=== PATIENT | female | born 1950 | race Caucasian/White ===

== ENCOUNTER 2020-03-06 08:29 | Outpatient (CLI) | payer MEDICARE, SELFPAY ==
--- NOTE | 2020-03-06 11:00 | NEURO_ITS ---
Impression: # Complains of numbness of left lower extremity more than right lower extremity. # Normal nerve conduction study including F-waves. # Needle/EMG exam not requested. # Other etiologies need to be ruled out. Nerve Conduction Studies Anti Sensory Summary Table Stim Site NR Peak (ms) P-T Amp (?V) Site1 Site2 Delta-P (ms) Dist (cm) Robert (m/s) Left Sup Fibular Anti Sensory (Ant Lat Mall) 14 cm 3.6 15.0 14 cm Ant Lat Mall 3.6 16.0 44 Right Sup Fibular Anti Sensory (Ant Lat Mall) 14 cm 3.3 9.6 14 cm Ant Lat Mall 3.3 16.0 48 Left Sural Anti Sensory (Lat Mall) Calf 3.8 10.5 Calf Lat Mall 3.8 16.0 42 Right Sural Anti Sensory (Lat Mall) Calf 3.8 14.8 Calf Lat Mall 3.8 16.0 42 Motor Summary Table Stim Site NR Onset (ms) O-P Amp (mV) Site1 Site2 Delta-0 (ms) Dist (cm) Robert (m/s) Left Peroneal Motor (Vastus Med) Ankle 4.5 1.6 Popit Ankle 7.5 36.0 48 Popit 12.0 1.7 Right Peroneal Motor (Vastus Med) Ankle 4.0 4.8 Popit Ankle 7.3 32.0 44 Popit 11.3 4.3 Left Tibial Motor (Abd Turcios Brev) Ankle 4.2 9.0 Knee Ankle 8.5 37.0 44 Knee 12.7 5.4 Right Tibial Motor (Abd Turcios Brev) Ankle 4.0 2.1 Knee Ankle 7.6 36.0 47 Knee 11.6 3.5 F Wave Studies NR F-Lat (ms) L-R F-Lat (ms) Left Peroneal (Mrkrs) (EDB) 45.58 0.24 Right Peroneal (Mrkrs) (EDB) 45.82 0.24 Left Tibial (Mrkrs) (Abd Hallucis) 44.98 0.84 Right Tibial (Mrkrs) (Abd Hallucis) 44.14 0.84 MTDD
== END 2020-03-06 08:30 | disposition home or self-care (01) ==
PROVIDERS: PCP Internal Medicine; Visit Provider Internal Medicine Cardiovascular Disease
DX: R20.2 Paresthesia of skin (principal)
CPT/HCPCS: 95910

== ENCOUNTER 2023-01-06 08:15 | Emergency (ER) | payer MEDICARE, SELFPAY ==
--- NOTE | ~2023-01-06 | XR_ITS ---
EXAMINATION: XR lumbar spine 2-3V DATE: 01/06/2023 09:19 INDICATION: Low back pain. Right-sided sciatica. TECHNIQUE: 3 views of lumbar spine were obtained. COMPARISON: None. FINDINGS: There is 6 degrees levocurvature of lumbar spine. There is 3 mm retrolisthesis of L2 on L3 and L3 on L4. Vertebral body heights are normal. Intervertebral disc heights are normal. There are en dplate osteophytes at all levels. There is multilevel facet joint osteoarthritis, severe in lower lum bar spine. IMPRESSION: 1. Mild lumbar spondylosis. Reviewed, dictated and finalized at location E. IMPRESSION: 1. Mild lumbar spondylosis.
[2023-01-06 08:22] VITALS: BP 139/80; PULSE 80; RESP 18; TEMP 36.7; O2SAT 100
[2023-01-06 08:26] VITALS: BP 135/63; PULSE 85; RESP 21; O2SAT 100
[2023-01-06 08:31] VITALS: BP 125/66; PULSE 86; RESP 20; O2SAT 100
[2023-01-06 09:00] VITALS: PULSE 77; RESP 19
[2023-01-06 09:01] VITALS: BP 150/70; PULSE 76; RESP 16
[2023-01-06 09:20] VITALS: PULSE 72; RESP 17; O2SAT 100
[2023-01-06] MEDS: KETOROLAC 30 MG/ML VIAL (*BKC) IM (09:35)
--- NOTE | 2023-01-06 10:21 | ED.GENADULT ---
HPI - General Adult General Chief complaint: Back Pain/Injury Stated complaint: low back pain Time Seen by Provider: 01/06/23 08:18 History of Present Illness HPI narrative: Patient is a 72-year-old female who presents ER with low back pain. Right-sided. Radiates down the leg. Worsening over the last couple of days. No numbness or tingling to the groin or legs. No urinary or fecal incontinence/retention. Has been taking Tylenol with mild improvement of discomfort. Denies any trauma or increased activity at home. Related Data Home Medications Medication Instructions Recorded Confirmed atorvastatin 40 mg tablet 40 mg PO DAILY 11/12/20 04/15/21 carvedilol 3.125 mg tablet 3.125 mg PO Q12H 11/12/20 04/15/21 clopidogrel 75 mg tablet 75 mg PO DAILY 11/12/20 04/15/21 gabapentin 600 mg tablet 600 mg PO DAILY 11/12/20 04/15/21 potassium chloride 20 mEq 20 meq PO DAILY 11/12/20 04/15/21 tablet,extended release venlafaxine 150 mg 150 mg PO DAILY 11/12/20 04/15/21 capsule,extended release 24 hr Allergies Allergy/AdvReac Type Severity Reaction Status Date / Time No Known Drug Allergies Allergy Unknown Unknown Unverified 01/06/23 09:36 Review of Systems Constitutional: Constitutional: Denies chills and Denies fever(s) Musculoskeletal: Musculoskeletal: Reports back pain, Denies arthralgias, Denies joint swelling and Denies muscle cramps Integumentary/Breasts: Skin/Breast: Denies erythema, Denies rash and Denies skin ulcer Neurologic: Denies focal weakness and Denies numbness [facility] Past Medical History Medical History (Updated 01/06/23 @ 10:25 by Zenon Chang MD) Depression Dyslipidemia Essential hypertension GERD (gastroesophageal reflux disease) History of [place] (myocardial infarction) Family History Family History Mother Diabetes mellitus, Onset Age: 44 Other Family history of cardiovascular disease Family history of congestive heart failure Family history of obesity Social History Social History (Updated 04/15/21 @ 13:16 by Gemma Gurrola CMA) Smoking status: Never smoker Alcohol intake: never Substance use: never Exam Narrative: GENERAL: Well-appearing, well-nourished, and in no acute distress. HEAD: Normocephalic, atraumatic. CHEST: Clear to auscultation. No respiratory distress. HEART: Regular rate and rhythm. Normal peripheral pulses. Back: No midline tenderness to T/L-spine. There is right SI region tenderness that reproduces patient's discomfort. EXTREMITIES: Normal range of motion. No edema. SKIN: Warm, dry, no rash. NEURO: No lower extremity numbness or weakness. Alert and oriented x3. PSYCH: Normal mood and affect. Course Course Emergency Course: Patient educated on imaging results. Had significant improvement in pain with Toradol. Patient prefers to take Tylenol over NSAIDs at home. Will add on muscle relaxation medication. Recommend follow-up with PCP. Return precautions provided. Vital Signs Vital signs: Vital Signs Temperature 98.1 F 01/06/23 08:22 Pulse Rate 80 01/06/23 08:22 Respiratory Rate 18 01/06/23 08:22 Blood Pressure 139/80 01/06/23 08:22 Pulse Oximetry 100 01/06/23 08:22 Oxygen Delivery Room Air 01/06/23 08:22 Temperature 98.1 F 01/06/23 08:22 Pulse Rate 80 01/06/23 08:22 Respiratory Rate 18 01/06/23 08:22 Blood Pressure 139/80 01/06/23 08:22 Pulse Oximetry 100 01/06/23 08:22 Oxygen Delivery Room Air 01/06/23 08:22 Medical Decision Making Vital Signs Vital Signs: Vital Signs Temperature 98.1 F 01/06/23 08:22 Pulse Rate 80 01/06/23 08:22 Respiratory Rate 18 01/06/23 08:22 Blood Pressure 139/80 01/06/23 08:22 Pulse Oximetry 100 01/06/23 08:22 Oxygen Delivery Room Air 01/06/23 08:22 Temperature 98.1 F 01/06/23 08:22 Pulse Rate 80 01/06/23 08:22 Respiratory Rate 18
== END 2023-01-06 10:46 | disposition home or self-care (01) ==
PROVIDERS: Emergency Provider Emergency Medicine; PCP Internal Medicine
DX: M54.41 Lumbago with sciatica, right side (principal); E78.5 Hyperlipidemia, unspecified; I10 Essential (primary) hypertension; I25.2 Old myocardial infarction; K21.9 Gastro-esophageal reflux disease without esophagitis; F32.A Depression, unspecified; M47.816 Spondylosis without myelopathy or radiculopathy, lumbar region
CPT/HCPCS: 72100; 96372; 99283; J1885

== ENCOUNTER 2023-07-19 10:26 | Emergency (ER) | payer MEDICARE, SELFPAY ==
--- NOTE | ~2023-07-19 | XR_ITS ---
EXAMINATION: XR chest 2V DATE: 07/19/2023 11:40 INDICATION: Cough. TECHNIQUE: Frontal and lateral views of the chest were obtained. COMPARISON: None. FINDINGS: There is mild scarring at the lung apices. There are interstitial opacities in the mid and lower lung zones. No pleural effusion or pneumothorax. The heart size is normal. IMPRESSION: 1. Interstitial opacities in the mid and lower lung zones, consistent with mild pulmonary edema versu s chronic lung disease. Reviewed, dictated and finalized at location A. IMPRESSION: 1. Interstitial opacities in the mid and lower lung zones, consistent with mild pulmonary edema versus chronic lung disease.
[2023-07-19 10:47] VITALS: BP 118/54; PULSE 89; RESP 16; TEMP 36.5; O2SAT 92
[2023-07-19 11:01] VITALS: O2SAT 100
--- NOTE | 2023-07-19 11:03 | ED.URI ---
HPI - URI/Sore Throat General Chief Complaint: Upper Respiratory Infection Stated Complaint: cough Time Seen by Provider: 07/19/23 11:03 Source: patient Mode of arrival: ambulatory Limitations: no limitations History of Present Illness HPI Narrative: Tania is a 73-year-old female patient presenting to the clinic today with complaints of cough and nasal congestion for the past 3-4 days. She denies any known fever, chills, or body aches. States she is bringing up some clear phlegm. MD elicited complaint: sore throat and nasal congestion Related Data Home Medications Medication Instructions Recorded Confirmed atorvastatin 40 mg tablet 40 mg PO DAILY 11/12/20 04/15/21 carvedilol 3.125 mg tablet 3.125 mg PO Q12H 11/12/20 04/15/21 clopidogrel 75 mg tablet 75 mg PO DAILY 11/12/20 04/15/21 gabapentin 600 mg tablet 600 mg PO DAILY 11/12/20 04/15/21 potassium chloride 20 mEq 20 meq PO DAILY 11/12/20 04/15/21 tablet,extended release venlafaxine 150 mg 150 mg PO DAILY 11/12/20 04/15/21 capsule,extended release 24 hr Allergies Allergy/AdvReac Type Severity Reaction Status Date / Time No Known Drug Allergies Allergy Unknown Unknown Verified 07/19/23 10:29 Review of Systems Review of Systems: Pertinent positives per HPI. Patient denies any fever, chills, rash, headache, visual changes, dizziness, cough, shortness of breath, chest pain, palpitations, nausea, vomiting, diarrhea, constipation, abdominal pain, or any urinary issues. ON LICENSE OF [facility] Past Medical History Medical History Depression Dyslipidemia Essential hypertension GERD (gastroesophageal reflux disease) History of [place] (myocardial infarction) Family History Family History Mother Diabetes mellitus, Onset Age: 44 Other Family history of cardiovascular disease Family history of congestive heart failure Family history of obesity Social History Social History Smoking status: Never smoker Alcohol intake: never Substance use: never Comments At the time of my signature, I reviewed and agree with the nursing past medical, surgical, social, and family history. There is no relevant family history pertinent to the patient complaint. Exam Narrative: General: Well-developed, well nourished, in no apparent distress Head: Normocephalic, atraumatic Eyes: Pupils equally round and reactive to light bilaterally, EOM intact, sclera and conjunctive clear, no discharge, lids normal Ears: TMs intact and clear, ear canals clear, no drainage, grossly hearing normal. Nose: Nares patent, clear discharge, no inflammation, no sinus tenderness. Mouth: Oral pharynx without lesions or masses, good dentition, MMM. Neck: Supple, trachea midline, no enlargement of anterior or posterior cervical nodes, no thyroid masses or goiter palpable. Cardio: Regular rate and rhythm, s1 and s2 normal, no murmur appreciated. Resp: Rhonchi in the right mid/lower base, no rales, wheezing or rubs Course Course Emergency Course: Portions of this record may have been created with voice recognition software. Vital Signs Vital signs: Vital Signs Temperature 36.5 C 07/19/23 10:47 Pulse Rate 89 07/19/23 10:47 Respiratory Rate 16 07/19/23 10:47 Blood Pressure 118/54 L 07/19/23 10:47 Pulse Oximetry 92 07/19/23 10:47 Oxygen Delivery Room Air 07/19/23 10:47 Temperature 36.5 C 07/19/23 10:47 Pulse Rate 89 07/19/23 10:47 Respiratory Rate 16 07/19/23 10:47 Blood Pressure 118/54 L 07/19/23 10:47 Pulse Oximetry 100 07/19/23 11:01 Oxygen Delivery Room Air 07/19/23 11:01 Vital signs reviewed MDM - URI/Sore Throat MDM Narrative Medical decision making narrative: At the time of visit patient is resting comfortably on the exam table. Patient appears to be nont
[2023-07-19 11:34] LABS: Influenza A QL RT-PCR Negative (Negative); Influenza B QL RT-PCR Negative (Negative); RSV RNA, RT-PCR Negative (Negative); SARS-CoV-2 RNA PCR Negative (Negative)
== END 2023-07-19 12:20 | disposition home or self-care (01) ==
PROVIDERS: Emergency Medicine; Emergency Provider Nurse Practitioner Family; PCP Internal Medicine
DX: J06.9 Acute upper respiratory infection, unspecified (principal); J40 Bronchitis, not specified as acute or chronic; Z20.822 Contact with and (suspected) exposure to COVID-19; F32.A Depression, unspecified; I10 Essential (primary) hypertension; K21.9 Gastro-esophageal reflux disease without esophagitis; I25.2 Old myocardial infarction
CPT/HCPCS: 71046; 87637; 99283

== ENCOUNTER 2023-07-22 06:44 | Inpatient (IN) | payer MEDICARE, SELFPAY ==
[2023-07-22] VITALS (31 sets, daily range): BP systolic 48–112; BP diastolic 28–83; PULSE 69–90; RESP 18–30; TEMP 36.6–37.2; O2SAT 89–100; BMI 21.2
--- NOTE | 2023-07-22 | ECHO_ITS ---
Patient Info Name: Tania Gibbs Age: 73 years : 1950 Gender: Female Ht: 62 in Wt: 119 lbs BSA: 1.54 m2 HR: 78 bpm Heart Rhythm: Sinus Rhythm Technical Quality: Good Exam Date: 07/22/2023 3:05 PM Exam Location: Echo Lab Patient Status: Inpatient Admit Date: 07/22/2023 Staff Ordering Physician: Remberto Suarez MD Java Tech: Dennys Mon RDCS Attending Provider: Duane Mckeon MD Exam Type: CA echo doppler color flow Study Info Indications - cavitary pneumonia Complete two-dimensional, color flow and Doppler transthoracic echocardiogram is performed. Summary 1. Complete two-dimensional, color flow and Doppler transthoracic echocardiogram is performed. 2. Mild left ventricular enlargement with global systolic dysfunction visually estimated ejection fraction about 40%. 3. Mild MR. 4. Modest left atrial enlargement. Left Ventricle Left ventricular chamber dimension is mildly enlarged. Left ventricular systolic function is mildly reduced, estimated at 40-45%. The left ventricular diastolic function is grade I diastolic dysfunction. Right Ventricle Right ventricular chamber dimension is normal. Left Atria Left atrial chamber dimension is mildly enlarged. Right Atria Right atrial chamber dimension is normal. Aortic Valve The aortic valve is normal. Pulmonic Valve The pulmonic valve is not well visualized. Mitral Valve The mitral valve has normal leaflets. There is mild mitral valve regurgitation. Tricuspid Valve The tricuspid valve leaflets are normal. Pericardium/Pleural The pericardium appears normal. Aorta The aortic root size at the sinus of Valsalva is normal. Left Ventricular Outflow Tract Name Value Normal LVOT 2D LVOT Diameter 2.2 cm LVOT Doppler LVOT Peak Gradient 3 mmHg LVOT Mean Gradient 2 mmHg LVOT VTI 24 cm LVOT VTI/AV VTI Ratio 1.0 LVOT Stroke Volume 87 ml LVOT CO 6.7 l/min LVOT CI 4.3 l/min/m2 Pulmonic Valve Name Value Normal RVOT Doppler RVOT Peak Gradient 2 mmHg PV Doppler PV Peak Gradient 2 mmHg Mitral Valve Name Value Normal MV Doppler MV Decel [place] 630 cm/s2 MV PHT 37 ms MV Area (PHT) 5.9 cm2 4.0-5.0 MV Regurgitation Doppler MR Peak Gradient
--- NOTE | ~2023-07-22 | CT_ITS ---
Clinical Indication: Shortness of breath CT Scan of the Chest with Contrast: Technique: Contiguous sections were acquired throughout the chest after intravenous administration of 100 cc of Omnipaque 350. Dose reduction technique was used on this scan by utilizing automated expos ure control and iterative reconstruction technique. The dose-length product (DLP) was 136.66 mGy-cm. Findings: Single mildly enlarged right hilar lymph node present. No other mediastinal or hilar lymphadenopathy. No axillary lymphadenopathy. There is no filling defect in the pulmonary arterial tree to suggest pu lmonary embolus. There is no evidence of aortic dissection or aneurysm. There is no evidence of pleural or pericardial effusion. There is patchy peripheral consolidation, predominantly the lung bases, with several focal areas of c avitary consolidation (left lower lobe image 93, right lower lobe image 83). There are several periph eral areas of consolidation at the anterior right upper lobe. There are areas of peripheral interstit ial thickening and/or tree-in-bud opacity. There is mild to moderate emphysema. Images through the upper abdomen reveal no abnormalities. Impression: No evidence of pulmonary embolus, aortic dissection, or aortic aneurysm. Patchy, probably peripheral and basilar consolidation with several focal areas of cavitation. Finding s are compatible with pneumonia or possibly septic emboli. Mild to moderate emphysema. Possible underlying chronic interstitial disease. Reviewed, dictated and finalized at location . Impression: No evidence of pulmonary embolus, aortic dissection, or aortic aneurysm. Patchy, probably peripheral and basilar consolidation with several focal areas of cavitation. Findings are compatible with pneumonia or possibly septic emboli . Mild to moderate emphysema. Possible underlying chronic interstitial disease.
--- NOTE | ~2023-07-22 | XR_ITS ---
EXAMINATION: XR chest 2V DATE: 07/26/2023 10:17 INDICATION: Septic emboli. Pneumonia. TECHNIQUE: PA and lateral views of the chest were obtained. COMPARISON: Chest radiograph and CT dated 07/22/2023 FINDINGS: Coarse interstitial and mild airspace opacities in the right lung most prominent in the upper lobe an d at the right lung base as well as at the left lung base consistent with multifocal pneumonia superi mposed over emphysema. Small bilateral pleural effusions. No pneumothorax. Heart size is normal. IMPRESSION: 1. Persistent airspace and coarse interstitial opacities throughout the right lung and at the left lo wer lung zone consistent with multifocal pneumonia superimposed over mild emphysema. 2. Small bilateral pleural effusions. Reviewed, dictated and finalized at location A. IMPRESSION: 1. Persistent airspace and coarse interstitial opacities throughout the right l maggie and at the left lower lung zone consistent with multifocal pneumonia superi mposed over mild emphysema. 2. Small bilateral pleural effusions.
--- NOTE | ~2023-07-22 | XR_ITS ---
EXAMINATION: XR chest port-a-cath/central DATE: 07/22/2023 09:30 INDICATION: Central line placement TECHNIQUE: frontal view of the chest was obtained. COMPARISON: Chest radiograph and CT dated 07/22/2023 at 8:02 AM FINDINGS: New dual-lumen right internal jugular central venous catheter with distal tip at the caudal superior vena cava. Left subclavian artery stent. There is a diffuse increased interstitial pattern throughout both lungs with mild more patchy airspac e opacities in the mid and lower lungs. No pleural effusion or pneumothorax. Heart size is normal. IMPRESSION: 1. Right internal jugular central venous catheter with tip in the caudal superior vena cava. No pneum othorax or pleural effusion. 2. Persistent diffuse interstitial and mild patchy airspace opacities, which differential would inclu de pneumonia, pulmonary edema, atelectasis/chronic interstitial lung disease or some combination ther eof. Reviewed, dictated and finalized at location B. IMPRESSION: 1. Right internal jugular central venous catheter with tip in the caudal superi or vena cava. No pneumothorax or pleural effusion. 2. Persistent diffuse interstitial and mild patchy airspace opacities, which di fferential would include pneumonia, pulmonary edema, atelectasis/chronic inters titial lung disease or some combination thereof.
--- NOTE | ~2023-07-22 | XR_ITS ---
Clinical Indication: Shortness of breath PA and lateral views of the chest: Comparison: 07/19/2023 Findings: There is new patchy bibasilar airspace consolidation. Cardiomediastinal silhouette is with in normal limits. Bones and soft tissues are unremarkable. Impression: Patchy bibasilar airspace consolidation. Correlate for pulmonary edema versus infection. Reviewed, dictated and finalized at location . Impression: Patchy bibasilar airspace consolidation. Correlate for pulmonary edema versus i nfection.
--- NOTE | 2023-07-22 07:00 | ECG_ITS ---
Measurements Intervals [place] Rate: 69 P: 73 RI: 150 QRS: 5 QRSD: 93 T: -4 QT: 380 Avg RR 862 QTc: 399 QTcB 409 QTcF 399 Interpretive Statements SINUS RHYTHM POSSIBLE RIGHT ATRIAL ENLARGEMENT [0.25mV P WAVE] POSSIBLE LEFT ATRIAL ENLARGEMENT [-0.1mV P WAVE IN V1/V2] NONSPECIFIC ST & T-WAVE ABNORMALITY BORDERLINE ECG SEE SCANNED COPY FOR SIGNATURE MTDD
[2023-07-22] MEDS: SODIUM CHLORIDE 0.9% IV 1,000 ML 999 ML IV CONT ×2 (07:05→08:10)
[2023-07-22 07:25] LABS: Basophils Absolute Auto 0.1 K/mm3 (0.0-0.1); Basophils Percent Auto 0.4 % (0.2-1.2); Eosinophils Percent Auto 0.1 % (0-4.4); Hemoglobin 12.2 g/dL (12.0-15.0); Immature Granulocyte Absolute 0.08 K/mm3 (0.00-0.031); Immature Granulocyte Percent A 0.6 % (0-0.5); Lymphocytes Absolute Auto 0.46 K/mm3 (0.9-3.2); Lymphocytes Percent Auto 3.7 % (18.3-44.2); Mean Corpuscular HGB Conc 32.1 g/dl (32-36); Mean Corpuscular Hemoglobin 29.8 pg (26-34); Mean Corpuscular Volume 92.9 fl (80-100); Mean Platelet Volume 9.4 fl (7.4-10.4); Monocytes Absolute Auto 0.6 K/mm3 (0.1-0.6); Monocytes Percent Auto 4.6 % (2.6-8.5); Neutrophils Absolute Auto 11.3 K/mm3 (1.3-6.7); Neutrophils Percent Auto 90.6 % (45.5-73.1); Platelet Count Result 346 k/mm3 (150-375); Red Blood Count 4.09 M/mm3 (4.2-5.4); Red Cell Distribution Width 13.1 % (11.5-14.5); White Blood Count 12.5 K/mm3 (4.5-10.0)
--- NOTE | 2023-07-22 07:26 | ED.GENADULT ---
HPI - General Adult General Chief complaint: Upper Respiratory Infection Stated complaint: sob Time Seen by Provider: 07/22/23 07:11 Source: patient Mode of arrival: ambulatory Limitations: no limitations History of Present Illness HPI narrative: 73-year-old female presenting for shortness of breath. Has had symptoms for about 5 days. She is an active smoker. Also has been coughing and says she occasionally gets some coughing induced chest pain. Cough is dry. No fevers. Feels generally weak. All other symptoms and complaints are negative as per ROS. Related Data Home Medications Medication Instructions Recorded Confirmed atorvastatin 40 mg tablet 40 mg PO DAILY 11/12/20 07/22/23 carvedilol 3.125 mg tablet 3.125 mg PO Q12H 11/12/20 07/22/23 clopidogrel 75 mg tablet 75 mg PO DAILY 11/12/20 07/22/23 gabapentin 600 mg tablet 300 mg PO Q8H 11/12/20 07/22/23 potassium chloride 20 mEq 20 meq PO DAILY 11/12/20 07/22/23 tablet,extended release venlafaxine 150 mg 150 mg PO DAILY 11/12/20 07/22/23 capsule,extended release 24 hr buspirone 5 mg tablet 5 mg PO Q12H 07/22/23 07/22/23 escitalopram oxalate 10 mg tablet 10 mg PO DAILY 07/22/23 07/22/23 Allergies Allergy/AdvReac Type Severity Reaction Status Date / Time No Known Drug Allergies Allergy Unknown Unknown Verified 07/22/23 06:59 Review of Systems Review of Systems: All systems reviewed & are unremarkable except as noted in HPI and below PMFSH Past Medical History Medical History (Updated 07/22/23 @ 18:41 by Moses Piper MD) Depression Dyslipidemia Essential hypertension GERD (gastroesophageal reflux disease) History of [place] (myocardial infarction) Stenting in 2011 Family History Family History Mother Diabetes mellitus, Onset Age: 44 Other Family history of cardiovascular disease Family history of congestive heart failure Family history of obesity Social History Social History (Updated 07/22/23 @ 11:49 by Remberto Suarez MD) Social History: Smokes half pack per day for last 20 years, denies any alcohol or drug use Smoking packs per day: 0.5 Smoking cigarettes per day: 10.0 Years smoked: 20 Smoking pack-years: 10.00 Smoking status: Current every day smoker Alcohol intake: never Substance use: never Do You Feel Safe in your Home?: Yes Lack of Transportation: No Lack of Food: Never True Current Housing: I Have Housing Concerned About Future Housing: No Difficulty Paying Gas/Electric Bills: No Difficulty Paying for Meds: No Currently Unemployed: No Education: Decline to Answer Difficulty w/ Childcare or Family Care: No Spiritual care concerns: No Exam Narrative: Constitutional: Generally well appearing, no acute distress. Hypotensive. Hypoxic 85% on room air in triage Head: Atraumatic, no deformities. Eyes: Pupils equal, round, and reactive to light. Neck: Supple, no tracheal deviation, no JVD. ENMT: Mucous membranes moist Cardiovascular: S1, S2 auscultated. No murmurs, rubs, or gallops. No S3/S4. Normal Distal pulses, equal and intact. No peripheral edema. Respiratory: Lung sounds equal. No wheezes, rales, or rhonchi. Gastrointestinal: Abdomen was soft and non-tender. Non-distended. No rebound or guarding. Genitourinary: Deferred Musculoskeletal: Normal muscle tone and bulk. No obvious deformities or tenderness over extremities. Skin: No rashes. Neurological: Strength 5/5 in extremities. Cranial nerves I-XII grossly intact. Distal sensation intact. Mental Status: Awake, alert and oriented x3. Follows commands Course Vital Signs Vital signs: Vital Signs Temperature 36.6 C 07/22/23 06:52 Pulse Rate 78 07/22/23 06:52 Respiratory Rate 21 H 07/22/23 06:52 Blood Pressure 83/54 L 07/22/23 06:52 Pulse Oximetry 89 L 07/22/23 06:52 Oxygen Delivery Room Air 07/22/23 06:52 Temperature 37.2 C 07/22/23
[2023-07-22 07:38] LABS: Alanine Aminotransferase 25 U/L (6-35); Albumin Level 3.8 g/dL (3.5-5.1); Alkaline Phosphatase 159 U/L (38-126); Anion Gap 8 mmol/L (4-12); Aspartate Amino Transferase 47 U/L (14-36); Bilirubin,Total 1.1 mg/dL (0.2-1.3); Blood Urea Nitrogen 16 mg/dL (7-17); Calcium 9.5 mg/dL (8.4-10.2); Carbon Dioxide 28 mmol/L (22-30); Chloride 95 mmol/L (98-107); Estimated CRCL calculation 55 ml/min; Estimated Glomerular Filt Rate > 60; Glucose 199 mg/dL (65-110); Sodium 131 mmol/L (137-145)
--- NOTE | 2023-07-22 07:55 | PC.NURSE ---
Confirmed w/dr. Piper he did not want 2nd EKG.
[2023-07-22 08:07] LABS: Lactic Acid Reflex 1.8 mmol/L (0.7-2.0)
[2023-07-22 08:10] LABS: Troponin I < 0.012 ng/mL (0.000-0.034)
[2023-07-22] MEDS: cefTRIAXone 2 GM/NS 100 ML 2 GM/100 ML BAG IVPB (08:10)
[2023-07-22 08:11] LABS: Prothrombin Time 13.9 Seconds (11.1-14.7)
[2023-07-22 08:12] LABS: Partial Thromboplastin Time 31.1 Seconds (22.3-36.8)
[2023-07-22 08:43] LABS: Influenza A QL RT-PCR Negative (Negative); Influenza B QL RT-PCR Negative (Negative); RSV RNA, RT-PCR Negative (Negative); SARS-CoV-2 RNA PCR Negative (Negative)
[2023-07-22] MEDS: NOREPINEPHRINE 8 MG/D5W 250 ML 8 MG/250 ML BAG 9.38 MG IV CONT (08:49)
[2023-07-22 09:05] LABS: CRP 22.9 mg/dL (<1.0)
--- NOTE | 2023-07-22 09:09 | PC.NURSE ---
Peripheral IV Access in R AC entered wrong, has been corrected
[2023-07-22] MEDS: AZITHROMYCIN 500 MG/NS 250 ML 500 MG/250 ML BAG 250 MG IVPB (09:32)
[2023-07-22] MEDS: VANCOMYCIN 1,250 MG/NS 250 ML 1,250 MG/250 ML BAG 166.67 MG IVPB (10:17)
--- NOTE | 2023-07-22 10:42 | WPDCNINT ---
Assessment and Plan Assessment and plan (1) Septic shock: Code(s): A41.9 - Sepsis, unspecified organism; R65.21 - Severe sepsis with septic shock Status: Acute Assessment and Plan: Secondary to pneumonia CTA chest Impression: No evidence of pulmonary embolus, aortic dissection, or aortic aneurysm. Patchy, probably peripheral and basilar consolidation with several focal areas of cavitation. Findings are compatible with pneumonia or possibly septic emboli. Mild to moderate emphysema. Possible underlying chronic interstitial disease. Patient's on 3 L by nasal cannula oxygen Check blood culture and sputum culture Urine Legionella pneumococcal antigen. Mycoplasma IgM Lactic acid was normal. Patient received 2 L fluid bolus. Continue maintainance fluids. Check NICOM for further fluid responsiveness Continue Levophed titration Check procalcitonin level Check echocardiogram light of multifocal cavitations. (2) Pneumonia: Code(s): J18.9 - Pneumonia, unspecified organism Status: Acute Assessment and Plan: See above (3) COPD (chronic obstructive pulmonary disease): Code(s): J44.9 - Chronic obstructive pulmonary disease, unspecified Status: Acute Assessment and Plan: Patient has not been officially diagnosed with COPD but is an active smoker and has COPD changes on a CT scan Bronchodilators ordered (4) Coronary artery disease: Code(s): I25.10 - Atherosclerotic heart disease of [place] coronary artery without angina pectoris Status: Acute Assessment and Plan: History of CAD [place] and stenting more than 12 years ago Continue Plavix and statin, Hold beta-danie due to hypotension EKG shows nonspecific ST-T changes Her chest pain appears pleuritic in nature. Troponin x1 negative will continue serial troponins. Check echo (5) Dyslipidemia: Code(s): E78.5 - Hyperlipidemia, unspecified Status: Acute Assessment and Plan: Continue statin Plan DVT prophylaxis -Lovenox Nutrition -heart healthy diet Code Status -patient wishes to be DNR DNI which I confirmed with the patient. Total Critical Care Time - 35 minutes Due to a high probability of clinically significant, life threatening deterioration, the patient required my highest level of preparedness to intervene emergently and I personally spent this critical care time directly and personally managing the patient. This critical care time included obtaining a history; examining the patient; pulse oximetry; ordering and review of studies; arranging urgent treatment with development of a management plan; evaluation of patient's response to treatment; frequent reassessment; and discussions with other providers. It was exclusive of separately billable procedures and treating other patients and teaching time. Please see Assessment and Plan section and the rest of the note for further information on patient assessment and treatment [employer] Consult Note Consult date: 07/22/23 Reason for consult: Septic shock HPI: Tania Gibbs is a 73 year old female with past medical history of coronary disease, GERD, hypertension, dyslipidemia presented today with chief complaint of shortness of breath and cough. In ER patient was found to be hypoxic and hypotensive. She was diagnosed with sepsis pneumonia. Patient was given 2 L fluid bolus and blood pressure was still low. She was started on vasopressors and a right IJ central venous catheter was placed. Patient is now being admitted to ICU for further evaluation management Patient states for last 1 week she has been having cough which is mostly dry. She also has runny nose. She has been having chest pain due to excessive coughing. She does admit intermittent shortness of breath. Denies any fever chills rigors. Denies any nausea vomiting abdominal pain diarrhea constipation dysuria hematuria hematochezia melena. No loss of consciousness dizziness lightheadedness
--- NOTE | 2023-07-22 10:45 | ADMGEN ---
This patient, Tania Gibbs, was admitted to Intensive Care Unit-3. Patient/family oriented to hospital policies and general routines including ID bracelet, bed and alarms, visiting hours, pain management, procedures, bathroom and other care routines, personal items, smoking policy, room service/diet, and visiting hours. Information on how to activate the Rapid Response Team has been discussed. Patient/Family are encouraged to report perceived risks to care and to ask questions if they do not understand what they are told or what they should do.
[2023-07-22 11:19] LABS: Appearance Urine Clear (Clear); Bacteria Urine None Seen /hpf; Bilirubin Urine Negative (Negative); Blood Urine Trace (Negative); Color Urine Yellow (Yellow); Glucose Urine UA Negative (Negative); Ketones Urine Negative (Negative); Leukocyte Esterase Ur Negative LEU/UL (Negative); Need Manual Microscopic Reviewed; Nitrate Urine Negative (Negative); Non Pathogenic Casts 0-2; Protein Urine Negative (Negative); Squamous Epithelial Cell Urine Few /hpf (Few); WBC Urine 0-5 /hpf (0-3)
[2023-07-22 11:20] LABS: MRSA (PCR) NOT DETECTED (NOT DETECTE)
[2023-07-22 11:28] LABS: Specific Grav Ur 1.063 (1.001-1.035)
[2023-07-22 11:29] LABS: Add Urine Microscopic? YES
[2023-07-22] MEDS: LACTATED RINGERS 500 ML 999 ML IV CONT ×2 (12:19→13:46)
[2023-07-22] MEDS: LACTATED RINGERS 1,000 ML 100 ML IV CONT ×2 (12:20→21:32)
[2023-07-22 12:22] LABS: NT Pro B Type Natriuretic Pept 1080 pg/mL (19.9-100)
[2023-07-22] MEDS: HYDROcodone/acetaminophen (*CRX) 5-325 MG TABLET 1 TAB PO ×2 (12:22→17:42)
[2023-07-22 12:26] LABS: Troponin I < 0.012 ng/mL (0.000-0.034)
[2023-07-22 12:33] LABS: Procalcitonin 0.4 ng/mL
[2023-07-22 12:48] LABS: Thyroid Stimulating Hormone Reflex < 0.015 uIU/mL (0.465-4.68)
--- NOTE | 2023-07-22 13:34 | PM.IMHP ---
H&P: HPI History of Present Illness Date/Time: 07/22/23 13:34 Chief Complaint: Cough, SOB Narrative: 73 y/o F presents here with cough and shortness of breath with PMH of HTN, CAD/IA (s/p stent x1 in 2011), dyslipidemia, neuropathy (BLE), and depression. Surgical history: total hysterectomy and partial colectomy. Patient presented here for further evaluation of shortness of breath and cough which has been ongoing for the past 5 days. Patient was initially seen for these symptoms on 07/18 here at [place]. CXR at that time was read as interstitial opacities in the mid and lower lung zones, consistent with mild pulmonary edema versus chronic lung disease. Patient was ultimately discharged home on prednisone 40 mg PO x5 days and albuterol. Since her initially evaluation, patient reports worsening shortness of breath, body aches, lightheadedness/tunnel vision with sitting to standing, and cough has become constant/deep. Cough has scant production and clear. Denying fever, chest pain, palpitations, syncope, or chills. No alleviating or aggravating factors for SOB identified by patient. Patient is a smoker, currently smoked 0.5 PPD, and has been smoker for the past 20 years. Initial VS at presentation: 97.9? F, HR 78, R 21, 83 of 54, and 89% on room air. Now on 3L nasal cannula and 94%. ED workup showed: WBC 12.5, no anemia, sodium 131, creatinine 0.6 with GFR >60, glucose 199, lactic acid 1.8, CRP 22.9, BNP 1080, and TSH <0.015. Viral PCR negative. CTA of the chest showed no PE, patchy peripheral in bibasilar consolidations, emphysema, possible underlying chronic interstitial disease. CXR showed patchy bibasilar airspace consolidations. Review of Systems Review of Systems: All systems reviewed & are unremarkable except as noted in HPI and below PMFSH Past Medical History Medical History Depression Dyslipidemia Emphysema/COPD Essential hypertension GERD (gastroesophageal reflux disease) History of IA (myocardial infarction) Stenting in 2012 Surgical History Surgical History History of partial colectomy History of total hysterectomy Family History Family History Mother Diabetes mellitus, Onset Age: 44 Other Family history of cardiovascular disease Family history of congestive heart failure Family history of obesity Social History Social History Social History: Smokes half pack per day for last 20 years, denies any alcohol or drug use Smoking packs per day: 0.5 Smoking cigarettes per day: 10.0 Years smoked: 20 Smoking pack-years: 10.00 Smoking status: Current every day smoker Alcohol intake: never Substance use: never Do You Feel Safe in your Home?: Yes Lack of Transportation: No Lack of Food: Never True Current Housing: I Have Housing Concerned About Future Housing: No Difficulty Paying Gas/Electric Bills: No Difficulty Paying for Meds: No Currently Unemployed: No Education: Decline to Answer Difficulty w/ Childcare or Family Care: No Spiritual care concerns: No Meds Home Medications and Allergies Home Medications Medication Instructions Recorded Confirmed Type atorvastatin 40 mg tablet 40 mg PO DAILY 11/12/20 07/22/23 History carvedilol 3.125 mg tablet 3.125 mg PO Q12H 11/12/20 07/22/23 History clopidogrel 75 mg tablet 75 mg PO DAILY 11/12/20 07/22/23 History gabapentin 600 mg tablet 300 mg PO Q8H 11/12/20 07/22/23 History potassium chloride 20 mEq 20 meq PO DAILY 11/12/20 07/22/23 History tablet,extended release venlafaxine 150 mg 150 mg PO DAILY 11/12/20 07/22/23 History capsule,extended release 24 hr Bifidobacterium infantis 4 mg 4 mg PO DAILY 1 month #30 caps 04/15/21 07/22/23 Rx capsule (Align) tizanidine 2 mg capsu
[2023-07-22 18:06] LABS: Troponin I < 0.012 ng/mL (0.000-0.034)
[2023-07-22] MEDS: guaiFENesin 12 HR 600 MG TABCR 1200 MG PO (21:32)
[2023-07-22] MEDS: methylPREDNISolone SOD SUCC 125 MG VIAL IV PUSH (21:32)
[2023-07-22 23:18] LABS: Total Triiodothyronine (T3) 1.12 NG/ML (0.97-1.69)
[2023-07-23] VITALS (20 sets, daily range): BP systolic 63–131; BP diastolic 31–96; PULSE 64–97; RESP 13–25; TEMP 36.7–37.2; O2SAT 90–100
[2023-07-23 00:27] LABS: Troponin I < 0.012 ng/mL (0.000-0.034)
[2023-07-23] MEDS: methylPREDNISolone SOD SUCC 125 MG VIAL 60 MG IV PUSH ×2 (06:19→09:09)
[2023-07-23 06:48] LABS: Hematocrit 36.1 % (37.0-47.0); Hemoglobin 11.9 g/dL (12.0-15.0); Mean Corpuscular Hemoglobin 30.6 pg (26-34); Mean Corpuscular Volume 92.8 fl (80-100); Mean Platelet Volume 9.3 fl (7.4-10.4); Platelet Count Result 376 k/mm3 (150-375); Red Blood Count 3.89 M/mm3 (4.2-5.4); Red Cell Distribution Width 13.1 % (11.5-14.5)
[2023-07-23 07:03] LABS: Alanine Aminotransferase 21 U/L (6-35); Albumin Level 3.2 g/dL (3.5-5.1); Alkaline Phosphatase 164 U/L (38-126); Anion Gap 6 mmol/L (4-12); Aspartate Amino Transferase 38 U/L (14-36); Bilirubin,Total 0.8 mg/dL (0.2-1.3); Blood Urea Nitrogen 9 mg/dL (7-17); Calcium 9.1 mg/dL (8.4-10.2); Carbon Dioxide 32 mmol/L (22-30); Chloride 96 mmol/L (98-107); Estimated CRCL calculation 65 ml/min; Estimated Glomerular Filt Rate > 60; Glucose 141 mg/dL (65-110); Magnesium 1.9 mg/dL (1.6-2.3); Potassium 3.5 mmol/L (3.4-5.0); Sodium 134 mmol/L (137-145)
[2023-07-23] MEDS: cefTRIAXone 2 GM/NS 100 ML 2 GM/100 ML BAG IVPB (07:49)
[2023-07-23] MEDS: AZITHROMYCIN 500 MG/NS 250 ML 500 MG/250 ML BAG 250 MG IVPB (08:21)
[2023-07-23] MEDS: POTASSIUM CHLORIDE 20 MEQ ER TABLET 40 MEQ PO (09:07)
[2023-07-23] MEDS: CLOPIDOGREL BISULFATE 75 MG TABLET PO (09:08)
[2023-07-23] MEDS: BENZONATATE 100 MG CAPSULE PO ×3 (09:08→17:42)
[2023-07-23] MEDS: guaiFENesin 12 HR 600 MG TABCR 1200 MG PO ×2 (09:08→20:15)
[2023-07-23] MEDS: ENOXAPARIN 40 MG/0.4 ML SYRINGE SUB-Q (09:08)
[2023-07-23] MEDS: ATORVASTATIN 40 MG TABLET PO (09:08)
[2023-07-23] MEDS: VANCOMYCIN 1,000 MG/NS 250 ML 1,000 MG/250 ML BAG 250 MG IVPB (09:09)
[2023-07-23] MEDS: PANTOPRAZOLE SODIUM IV 40 MG VIAL IV PUSH (09:09)
--- NOTE | 2023-07-23 09:53 | WPDINTPN ---
Progress Note: A&P Assessment and Plan (1) Septic shock: Code(s): A41.9 - Sepsis, unspecified organism; R65.21 - Severe sepsis with septic shock Status: Acute Assessment and Plan: Secondary to pneumonia CTA chest Impression: No evidence of pulmonary embolus, aortic dissection, or aortic aneurysm. Patchy, probably peripheral and basilar consolidation with several focal areas of cavitation. Findings are compatible with pneumonia or possibly septic emboli. Mild to moderate emphysema. Possible underlying chronic interstitial disease. Patient's on 3-4 L by nasal cannula oxygen Pending blood culture and sputum culture Pending Urine Legionella pneumococcal antigen. Pending Mycoplasma IgM Lactic acid was normal. Patient received 2 L fluid bolus. She was continued on maintainance fluids. NICOM showed positive fluid responsiveness and patient was given additional fluid bolus She was on Levophed through the night but off this morning Hold further fluids Echocardiogram is done and pending (2) Pneumonia: Code(s): J18.9 - Pneumonia, unspecified organism Status: Acute Assessment and Plan: See above (3) COPD (chronic obstructive pulmonary disease): Code(s): J44.9 - Chronic obstructive pulmonary disease, unspecified Status: Acute Assessment and Plan: Patient has not been officially diagnosed with COPD but is an active smoker and has COPD changes on a CT scan Bronchodilators ordered Patient was started on steroids by internal medicine physician. I will cut cut down the dosing to q.day (4) Coronary artery disease: Code(s): I25.10 - Atherosclerotic heart disease of [place] coronary artery without angina pectoris Status: Acute Assessment and Plan: History of CAD [place] and stenting more than 12 years ago Continue Plavix and statin, Hold beta-danie due to hypotension EKG shows nonspecific ST-T changes Her chest pain appears pleuritic in nature and appears to have resolved. Serial Troponin were negative Echocardiogram has been done and report is pending (5) Dyslipidemia: Code(s): E78.5 - Hyperlipidemia, unspecified Status: Acute Assessment and Plan: Continue statin (6) Electrolyte abnormality: Code(s): E87.8 - Other disorders of electrolyte and fluid balance, not elsewhere classified Status: Acute Assessment and Plan: Replace low potassium Plan DVT prophylaxis -Lovenox Nutrition -heart healthy diet Code Status -patient wishes to be DNR DNI which I confirmed with the patient. Incentive spirometry and up in chair Total Critical Care Time - 30 minutes Due to a high probability of clinically significant, life threatening deterioration, the patient required my highest level of preparedness to intervene emergently and I personally spent this critical care time directly and personally managing the patient. This critical care time included obtaining a history; examining the patient; pulse oximetry; ordering and review of studies; arranging urgent treatment with development of a management plan; evaluation of patient's response to treatment; frequent reassessment; and discussions with other providers. It was exclusive of separately billable procedures and treating other patients and teaching time. Please see Assessment and Plan section and the rest of the note for further information on patient assessment and treatment Subjective Date/time seen: 07/23/23 Overnight events reviewed. Afebrile On 4 L nasal cannula She was on Levophed through the night but weaned off this morning Patient herself states he feels much better and denies any specific complaint. She does continue to have cough which he states is dry and mostly spit coming out. She does admit to feeling short of breath sometimes when she exerts. Denies any other complaints. All the systems were reviewed and were negative Urine output and other Vitals acceptable. P.o. intake is po
[2023-07-23] MEDS: NOREPINEPHRINE 8 MG/D5W 250 ML 8 MG/250 ML BAG 1.88 MG IV CONT (10:13)
--- NOTE | 2023-07-23 13:41 | PM.IMPN ---
Progress Note: A&P Assessment and Plan (1) Septic shock: Code(s): A41.9 - Sepsis, unspecified organism; R65.21 - Severe sepsis with septic shock Status: Acute Assessment and Plan: Patient presents with cough/SOB and found to have low BP during evaluation in the ED. Septic shock due to PNA CTA chest showing patchy consolidations with several areas of cavitations. Consider septic emboli. Emphysema and ILD but no PE. BP dropped to 48/28 and central line placed and started on levophed. Also given IV fluids. Started on abx after appropriate cultures obtained. Able to wean down pressors. Produce Manager following and appreciate their input. (2) Pneumonia: Code(s): J18.9 - Pneumonia, unspecified organism Status: Acute Assessment and Plan: CT chest showing patchy, probably peripheral and basilar consolidation with several focal areas of cavitation compatible with pneumonia or possibly septic emboli. Influenza, RSV and COVID PCR were negative. Nasal MRSA screen was negative. Vancomycin, Rocephin azithromycin started. Blood cultures no growth to date. Sputum culture pending Urine antigen studies ordered. WBC higher but on steroids. Echocardiogram mild LV enlargement with global systolic dysfunction with EF of 40%, grade 1 diastolic dysfunction and mild MR. No evidence of valvular vegetation. Continue IV antibiotics. Consider TTE. (3) COPD (chronic obstructive pulmonary disease): Code(s): J44.9 - Chronic obstructive pulmonary disease, unspecified Status: Acute Assessment and Plan: Patient is a current smoker. COPD listed her past medical history. CT chest shows mild to monitor it emphysema and possibly underlying chronic interstitial lung disease. She remains on a few L of oxygen. She was given Solu-Medrol in the emergency room and continued on Solu-Medrol after admission. Continue nebulizer treatments. (4) Coronary artery disease: Code(s): I25.10 - Atherosclerotic heart disease of [place] coronary artery without angina pectoris Status: Acute Assessment and Plan: Patient has a history of CAD [place] and stenting more than 12 years ago EKG shows nonspecific ST-T changes. Serial Troponin were negative Echo as above Chest pain felt related to PNA Continue Plavix and statin, Holding beta-danie due to hypotension (5) Dyslipidemia: Code(s): E78.5 - Hyperlipidemia, unspecified Status: Acute Assessment and Plan: LFTs okay. Continue statin (6) Tobacco abuse: Code(s): Z72.0 - Tobacco use Status: Acute Assessment and Plan: Educate patient about the benefits of smoking cessation. Plan DVT prophylaxis -Lovenox Code Status - DNR DNI Subjective Date/time seen: 07/23/23 13:41 Interval history: 73yo female with HTN, depression and CAD here for cough and SOB. SOB better. Persistent cough but nonproductive. Was having lower chest pain but no complaints of chest pain today. Up to the chair. No n/v. Poor appetite. Voiding normally. Exam Narrative: AF 98.9 95/48 73 25 94% 2L Gen - NARD sitting up in the chair Chest - clear bilaterally. nmnl RR CV - RRR S1/S2. Tele showing no significant dysrhythmias Abd - Soft, ND, +BS. Bladder distended Ext - No pedal edema Psych - Nml mood and affect Skin - Warm and dry Objective Data Vital Signs Vital Signs: Vital Signs - 24 hr 07/22/23 14:00 07/22/23 14:00 07/22/23 14:00 Temperature Pulse Rate 73 73 73 Respiratory Rate 18 Blood Pressure 104/65 104/65 Pulse Oximetry 94 Oxygen Delivery Oxygen Flow Rate 07/22/23 15:35 07/22/23 16:00 07/22/23 16:00 Temperature 98.9 F Pulse Rate 72 77 77 Respiratory Rate 26 H Blood Pressure 107/68 102/65 Pulse Oximetry 96 Oxygen Delivery Oxygen Flow Rate 07/22/23 16:00 07/22/23 16:30 07/22/23 16:00 Temperature Pulse Rate 77 74 77 Respiratory Rate 26 H Blood Press
[2023-07-23] MEDS: ALBUMIN HUMAN 25% 25 GM/100 ML 100 ML IVPB ×2 (15:17→20:15)
[2023-07-24] VITALS (21 sets, daily range): BP systolic 80–159; BP diastolic 48–82; PULSE 63–95; RESP 18–27; TEMP 36.3–36.9; O2SAT 90–96
[2023-07-24] MEDS: ALBUMIN HUMAN 25% 25 GM/100 ML 100 ML IVPB ×2 (00:30→06:13)
[2023-07-24 06:29] LABS: Hemoglobin 10.7 g/dL (12.0-15.0); Mean Corpuscular HGB Conc 32.4 g/dl (32-36); Mean Corpuscular Hemoglobin 30.1 pg (26-34); Mean Platelet Volume 9.1 fl (7.4-10.4); Platelet Count Result 337 k/mm3 (150-375); Red Blood Count 3.55 M/mm3 (4.2-5.4); White Blood Count 14.5 K/mm3 (4.5-10.0)
[2023-07-24 07:41] LABS: Alanine Aminotransferase 14 U/L (6-35); Albumin Level 3.9 g/dL (3.5-5.1); Alkaline Phosphatase 94 U/L (38-126); Anion Gap 7 mmol/L (4-12); Aspartate Amino Transferase 28 U/L (14-36); Bilirubin,Total 0.8 mg/dL (0.2-1.3); Blood Urea Nitrogen 10 mg/dL (7-17); Calcium 9.6 mg/dL (8.4-10.2); Carbon Dioxide 31 mmol/L (22-30); Chloride 95 mmol/L (98-107); Estimated CRCL calculation 65 ml/min; Estimated Glomerular Filt Rate > 60; Glucose 107 mg/dL (65-110); Potassium 2.9 mmol/L (3.4-5.0); Sodium 133 mmol/L (137-145)
[2023-07-24] MEDS: ENOXAPARIN 40 MG/0.4 ML SYRINGE SUB-Q (08:22)
[2023-07-24] MEDS: methylPREDNISolone SOD SUCC 125 MG VIAL 60 MG IV PUSH (08:23)
[2023-07-24] MEDS: BENZONATATE 100 MG CAPSULE 200 MG PO ×4 (08:24→21:16)
[2023-07-24] MEDS: PANTOPRAZOLE SODIUM IV 40 MG VIAL IV PUSH (08:24)
[2023-07-24] MEDS: guaiFENesin 12 HR 600 MG TABCR 1200 MG PO ×2 (08:25→21:17)
[2023-07-24] MEDS: CLOPIDOGREL BISULFATE 75 MG TABLET PO (08:26)
[2023-07-24] MEDS: MIDODRINE HCL 2.5 MG TABLET 5 MG PO ×3 (08:26→16:44)
[2023-07-24] MEDS: KCL 40 MEQ/WATER 100 ML 100 ML 25 ML IVPB (08:28)
[2023-07-24] MEDS: cefTRIAXone 2 GM/NS 100 ML 2 GM/100 ML BAG IVPB (08:31)
[2023-07-24] MEDS: POTASSIUM CHLORIDE 20 MEQ PACKET (FOR LIQUID) 40 MEQ PO (08:32)
[2023-07-24] MEDS: AZITHROMYCIN 500 MG/NS 250 ML 500 MG/250 ML BAG 250 MG IVPB (08:33)
[2023-07-24] MEDS: ATORVASTATIN 40 MG TABLET PO (08:33)
[2023-07-24] MEDS: KCL 20MEQ/0.9% SOD CHL 1,000 ML 100 ML IV CONT (08:36)
--- NOTE | 2023-07-24 08:37 | WPDINTPN ---
Progress Note: A&P Assessment and Plan (1) Septic shock: Code(s): A41.9 - Sepsis, unspecified organism; R65.21 - Severe sepsis with septic shock Status: Acute Assessment and Plan: Secondary to pneumonia CTA chest Impression: No evidence of pulmonary embolus, aortic dissection, or aortic aneurysm. Patchy, probably peripheral and basilar consolidation with several focal areas of cavitation. Findings are compatible with pneumonia or possibly septic emboli. Mild to moderate emphysema. Possible underlying chronic interstitial disease. Patient's on 3 L by nasal cannula oxygen blood culture and sputum culture negative till now Pending Urine Legionella pneumococcal antigen. Pending Mycoplasma IgM Lactic acid was normal. Patient received 2 L fluid bolus. She was continued on maintainable fluids. NICOM showed positive fluid responsiveness and patient was given additional fluid bolus She was on Levophed through the night but off this morning Continue gentle fluids Echocardiogram reviewed as below (2) Pneumonia: Code(s): J18.9 - Pneumonia, unspecified organism Status: Acute Assessment and Plan: See above (3) COPD (chronic obstructive pulmonary disease): Code(s): J44.9 - Chronic obstructive pulmonary disease, unspecified Status: Acute Assessment and Plan: Patient has not been officially diagnosed with COPD but is an active smoker and has COPD changes on a CT scan Bronchodilators ordered Continue Solu-Medrol (4) Coronary artery disease: Code(s): I25.10 - Atherosclerotic heart disease of [place] coronary artery without angina pectoris Status: Acute Assessment and Plan: History of CAD [place] and stenting more than 12 years ago Continue Plavix and statin, Hold beta-danie due to hypotension EKG shows nonspecific ST-T changes Her chest pain appears pleuritic in nature and appears to have resolved. Serial Troponin were negative Echocardiogram Summary ? 1. Complete two-dimensional, color flow and Doppler transthoracic echocardiogram is performed. ? 2. Mild left ventricular enlargement with global systolic dysfunction visually estimated ejection fraction about 40%. ? 3. Mild MR. ? 4. Modest left atrial enlargement. Discussed echo results with the patient. She would like to follow-up with her child study team director Dr. Gomez as an outpatient (5) Dyslipidemia: Code(s): E78.5 - Hyperlipidemia, unspecified Status: Acute Assessment and Plan: Continue statin (6) Electrolyte abnormality: Code(s): E87.8 - Other disorders of electrolyte and fluid balance, not elsewhere classified Status: Acute Assessment and Plan: Replace low potassium Plan DVT prophylaxis -Lovenox Nutrition -heart healthy diet Code Status -patient wishes to be DNR DNI which I confirmed with the patient. Incentive spirometry and up in chair Total Critical Care Time - 30 minutes Due to a high probability of clinically significant, life threatening deterioration, the patient required my highest level of preparedness to intervene emergently and I personally spent this critical care time directly and personally managing the patient. This critical care time included obtaining a history; examining the patient; pulse oximetry; ordering and review of studies; arranging urgent treatment with development of a management plan; evaluation of patient's response to treatment; frequent reassessment; and discussions with other providers. It was exclusive of separately billable procedures and treating other patients and teaching time. Please see Assessment and Plan section and the rest of the note for further information on patient assessment and treatment Subjective Date/time seen: 07/24/23 She states she has continued to have cough but mostly dry. She denies any fever. She states her belly hurts sometime after cough bout. P.o. intake is limited. She states she would like to go home. Mariangel
[2023-07-24 09:18] LABS: Vancomycin Trough 5.2 ug/mL (10.0-20.0)
[2023-07-24] MEDS: VANCOMYCIN 1,000 MG/NS 250 ML 1,000 MG/250 ML BAG 250 MG IVPB ×2 (10:52→21:17)
[2023-07-24] MEDS: HYDROcodone/acetaminophen (*CRX) 5-325 MG TABLET 1 TAB PO (11:37)
--- NOTE | 2023-07-24 15:05 | PM.IMPN ---
Progress Note: A&P Assessment and Plan (1) Septic shock: Code(s): A41.9 - Sepsis, unspecified organism; R65.21 - Severe sepsis with septic shock Status: Acute Assessment and Plan: Patient presents with cough/SOB and found to have low BP during evaluation in the ED. Septic shock due to PNA CTA chest showing patchy consolidations with several areas of cavitations. Consider septic emboli. Emphysema and ILD but no PE. BP dropped to 48/28 and central line placed and started on levophed. Also given IV fluids. Started on abx after appropriate cultures obtained. Able to wean off pressors last night. International Logistics Coordinator following and appreciate their input. (2) Pneumonia: Code(s): J18.9 - Pneumonia, unspecified organism Status: Acute Assessment and Plan: CT chest showing patchy, probably peripheral and basilar consolidation with several focal areas of cavitation compatible with pneumonia or possibly septic emboli. Influenza, RSV and COVID PCR were negative. Nasal MRSA screen was negative. Vancomycin, Rocephin azithromycin started. Blood cultures no growth to date. Sputum culture pending Urine antigen studies ordered. WBC better Echo mild LV enlargement with global systolic dysfunction, EF of 40%, grade 1 diastolic dysfunction and mild MR. No evidence of valvular vegetation. Continue IV antibiotics. Consider TTE. (3) COPD (chronic obstructive pulmonary disease): Code(s): J44.9 - Chronic obstructive pulmonary disease, unspecified Status: Acute Assessment and Plan: Patient is a current smoker. COPD listed in her past medical history. CT chest shows mild to moderate emphysema and possibly underlying chronic interstitial lung disease. She remains on a few L of oxygen. She was given Solu-Medrol in the emergency room and continued on Solu-Medrol after admission. Continue nebulizer treatments. Wean O2 as tolerated (4) Coronary artery disease: Code(s): I25.10 - Atherosclerotic heart disease of [place] coronary artery without angina pectoris Status: Acute Assessment and Plan: Patient has a history of CAD [place] and stenting more than 12 years ago EKG shows nonspecific ST-T changes. Serial Troponin were negative Echo as above Chest pain felt related to PNA Continue Plavix and statin, Holding beta-danie due to hypotension (5) Dyslipidemia: Code(s): E78.5 - Hyperlipidemia, unspecified Status: Acute Assessment and Plan: LFTs okay. Continue statin (6) Tobacco abuse: Code(s): Z72.0 - Tobacco use Status: Acute Assessment and Plan: Educate patient about the benefits of smoking cessation. Plan DVT prophylaxis -Lovenox Code Status - DNR DNI Subjective Date/time seen: 07/24/23 15:05 Interval history: 73yo female with HTN, depression and CAD here for cough and SOB. Off Levophed around [place]. On 2L currently. Voiding normally. Nml BMs. SLept okay. No n/v but has poor appetite. Exam Narrative: AF 98.0 106/57 65 19 96% 2L Gen - NARD sitting up in the chair Neck - Rt IJ TLC in place Chest - few basilar crackles o/w clear. CV - RRR S1/S2. Tele showing PVCs but no significant dysrhythmias Abd - Soft, ND, +BS. No bladder distention Ext - No pedal edema Psych - Nml mood and affect Skin - Warm and dry Objective Data Vital Signs Vital Signs: Vital Signs - 24 hr 07/23/23 16:00 07/23/23 16:00 07/23/23 16:00 Temperature 98.2 F Pulse Rate 83 83 83 Respiratory Rate 13 18 Blood Pressure 108/57 L Pulse Oximetry 96 96 Oxygen Delivery Nasal Cannula Oxygen Flow Rate 2 Fraction of Inspired Oxygen 07/23/23 16:00 07/23/23 18:00 07/23/23 18:00 Temperature Pulse Rate 83 78 78 Respiratory Rate 22 H Blood Pressure 108/57 L 92/56 L Pulse Oximetry 94 Oxygen Delivery Oxygen Flow Rate Fraction of Inspired Oxygen 07/23/23 20:00 07/23/23 20:00 07/23/23 20:00 Temperatur
[2023-07-24 17:48] LABS: Magnesium 1.9 mg/dL (1.6-2.3); Phosphorus 3.3 mg/dL (2.5-4.5)
[2023-07-24 20:34] LABS: Anion Gap 7 mmol/L (4-12); Blood Urea Nitrogen 12 mg/dL (7-17); Calcium 9.3 mg/dL (8.4-10.2); Carbon Dioxide 28 mmol/L (22-30); Chloride 102 mmol/L (98-107); Estimated CRCL calculation 65 ml/min; Estimated Glomerular Filt Rate > 60; Glucose 138 mg/dL (65-110); Potassium 4.3 mmol/L (3.4-5.0); Sodium 137 mmol/L (137-145)
[2023-07-24] MEDS: ACETAMINOPHEN 325 MG TABLET 650 MG PO (21:16)
[2023-07-25] VITALS (11 sets, daily range): BP systolic 91–149; BP diastolic 49–73; PULSE 59–73; RESP 17–22; TEMP 36.1–36.7; O2SAT 90–99
[2023-07-25] MEDS: BENZONATATE 100 MG CAPSULE 200 MG PO ×3 (05:26→20:11)
[2023-07-25 05:43] LABS: Hematocrit 33.5 % (37.0-47.0); Hemoglobin 10.7 g/dL (12.0-15.0); Mean Corpuscular HGB Conc 31.9 g/dl (32-36); Mean Corpuscular Hemoglobin 30.1 pg (26-34); Mean Corpuscular Volume 94.4 fl (80-100); Mean Platelet Volume 8.9 fl (7.4-10.4); Platelet Count Result 303 k/mm3 (150-375); Red Blood Count 3.55 M/mm3 (4.2-5.4); Red Cell Distribution Width 13.1 % (11.5-14.5); White Blood Count 12.8 K/mm3 (4.5-10.0)
[2023-07-25 05:50] LABS: Alanine Aminotransferase 13 U/L (6-35); Albumin Level 3.5 g/dL (3.5-5.1); Alkaline Phosphatase 77 U/L (38-126); Anion Gap 4 mmol/L (4-12); Aspartate Amino Transferase 25 U/L (14-36); Bilirubin,Total 0.7 mg/dL (0.2-1.3); Blood Urea Nitrogen 16 mg/dL (7-17); Carbon Dioxide 30 mmol/L (22-30); Chloride 101 mmol/L (98-107); Estimated CRCL calculation 65 ml/min; Estimated Glomerular Filt Rate > 60; Glucose 95 mg/dL (65-110); Potassium 3.6 mmol/L (3.4-5.0); Sodium 135 mmol/L (137-145)
--- NOTE | 2023-07-25 08:20 | WPDINTPN ---
Progress Note: A&P Assessment and Plan (1) Septic shock: Code(s): A41.9 - Sepsis, unspecified organism; R65.21 - Severe sepsis with septic shock Status: Acute Assessment and Plan: Secondary to pneumonia CTA chest Impression: No evidence of pulmonary embolus, aortic dissection, or aortic aneurysm. Patchy, probably peripheral and basilar consolidation with several focal areas of cavitation. Findings are compatible with pneumonia or possibly septic emboli. Mild to moderate emphysema. Possible underlying chronic interstitial disease. Patient's on 3 L by nasal cannula oxygen blood culture and sputum culture negative till now Pending Urine Legionella pneumococcal antigen. Pending Mycoplasma IgM Lactic acid was normal. Patient received 2 L fluid bolus. She was continued on maintainable fluids. NICOM showed positive fluid responsiveness and patient was given additional fluid bolus Off of vasopressors for more than 24 hours Will discontinue further IV fluids Echocardiogram reviewed as below Continue Rocephin azithromycin and discontinue vancomycin (2) Pneumonia: Code(s): J18.9 - Pneumonia, unspecified organism Status: Acute Assessment and Plan: See above (3) COPD (chronic obstructive pulmonary disease): Code(s): J44.9 - Chronic obstructive pulmonary disease, unspecified Status: Acute Assessment and Plan: Patient has not been officially diagnosed with COPD but is an active smoker and has COPD changes on a CT scan Bronchodilators ordered Continue steroid but switch to p.o. prednisone (4) Coronary artery disease: Code(s): I25.10 - Atherosclerotic heart disease of [place] coronary artery without angina pectoris Status: Acute Assessment and Plan: History of CAD [place] and stenting more than 12 years ago Continue Plavix and statin, Hold beta-danie due to hypotension EKG shows nonspecific ST-T changes Her chest pain appears pleuritic in nature and appears to have resolved. Serial Troponin were negative Echocardiogram Summary ? 1. Complete two-dimensional, color flow and Doppler transthoracic echocardiogram is performed. ? 2. Mild left ventricular enlargement with global systolic dysfunction visually estimated ejection fraction about 40%. ? 3. Mild MR. ? 4. Modest left atrial enlargement. Discussed echo results with the patient. She would like to follow-up with her wort extractor Dr. Gomez as an outpatient (5) Dyslipidemia: Code(s): E78.5 - Hyperlipidemia, unspecified Status: Acute Assessment and Plan: Continue statin (6) Electrolyte abnormality: Code(s): E87.8 - Other disorders of electrolyte and fluid balance, not elsewhere classified Status: Acute Assessment and Plan: Replace low potassium Plan DVT prophylaxis -Lovenox Nutrition -heart healthy diet Code Status -patient wishes to be DNR DNI which I confirmed with the patient. Incentive spirometry and up in chair Transfer out of ICU today Subjective Date/time seen: 07/25/23 Overnight events reviewed. Afebrile Complains of cough which is dry. Some shortness of breath intermittently. Denies any other complaints. All other systems were reviewed and were negative Off vasopressors Good urine output, tolerating p.o. diet, sinus rhythm on the monitor Other Vitals acceptable Review of Systems Review of Systems: All systems reviewed & are unremarkable except as noted in HPI and below (Subjective) Exam Narrative: General: Pt is alert awake and in NAD Lungs/Chest: Trachea central Clear BS B/L, No crackles or wheezing. Cardiac: RRR. Normal S1 S2. No murmurs Circulation: Pedal pulses are intact and symmetrical. Abdomen: Normal bowel sounds.. Soft. NT. ND. Extremities: No clubbing, cyanosis or edema. Warm : Jha in place Neurologic: Follows commands. Moves all 4 extremities PERRL AO x3 Skin: No Rash Objective Data Vital Signs Vital Signs: Vital Signs
[2023-07-25] MEDS: guaiFENesin 12 HR 600 MG TABCR 1200 MG PO ×2 (08:24→20:08)
[2023-07-25] MEDS: POTASSIUM CHLORIDE 20 MEQ ER TABLET 40 MEQ PO (08:25)
[2023-07-25] MEDS: PANTOPRAZOLE SODIUM IV 40 MG VIAL IV PUSH (08:25)
[2023-07-25] MEDS: HYDROcodone/acetaminophen (*CRX) 5-325 MG TABLET 1 TAB PO ×2 (08:25→20:04)
[2023-07-25] MEDS: CLOPIDOGREL BISULFATE 75 MG TABLET PO (08:26)
[2023-07-25] MEDS: ATORVASTATIN 40 MG TABLET PO (08:26)
[2023-07-25] MEDS: ENOXAPARIN 40 MG/0.4 ML SYRINGE SUB-Q (08:26)
[2023-07-25] MEDS: cefTRIAXone 2 GM/NS 100 ML 2 GM/100 ML BAG IVPB (08:28)
[2023-07-25] MEDS: AZITHROMYCIN 500 MG/NS 250 ML 500 MG/250 ML BAG 250 MG IVPB (08:29)
[2023-07-25] MEDS: predniSONE 20 MG TABLET 40 MG PO (08:44)
--- NOTE | 2023-07-25 13:40 | PC.NURSE ---
This patient, Tania Gibbs, was received from ICU 9 on 07/25/23 at 1340. Patient/family oriented to unit policies and routines. Report received by BREANNA Camacho.
--- NOTE | 2023-07-25 13:40 | PC.NURSE ---
This patient, Tania Gibbs, was transferred to [[id number] ] on 07/25/23 at 1340. Personal belongings sent with patient. Report given to [Karen CARLOS ]. Appropriate documentation sent with patient.
--- NOTE | 2023-07-25 15:37 | PM.IMPN ---
Progress Note: A&P Assessment and Plan (1) Septic shock: Code(s): A41.9 - Sepsis, unspecified organism; R65.21 - Severe sepsis with septic shock Status: Acute Assessment and Plan: Patient presents with cough/SOB and found to have low BP during evaluation in the ED. Septic shock due to PNA CTA chest showing patchy consolidations with several areas of cavitations. Consider septic emboli. Emphysema and ILD but no PE. BP dropped to 48/28 and central line placed and started on levophed. Also given IV fluids. Started on abx after appropriate cultures obtained. Able to wean off pressors. Off IV fluids . BP remaining stable [employer] Worker following and appreciate their input. (2) Pneumonia: Code(s): J18.9 - Pneumonia, unspecified organism Status: Acute Assessment and Plan: CT chest showing patchy, probably peripheral and basilar consolidation with several focal areas of cavitation compatible with pneumonia or possibly septic emboli. Influenza, RSV and COVID PCR were negative. Nasal MRSA screen was negative. Vancomycin, Rocephin azithromycin started. Blood cultures no growth to date. Sputum culture negative Urine antigen studies ordered. WBC better Echo mild LV enlargement with global systolic dysfunction, EF of 40%, Grade1 diastolic dysfunction and mild MR. No evidence of valvular vegetation. Vancomycin stopped. She is improving and BCx negative so cardioembolic source seems less likely Continue IV antibiotics. (3) COPD (chronic obstructive pulmonary disease): Code(s): J44.9 - Chronic obstructive pulmonary disease, unspecified Status: Acute Assessment and Plan: Patient is a current smoker. COPD listed in her past medical history. CT chest shows mild to moderate emphysema and possibly underlying chronic interstitial lung disease. She remains on a few L of oxygen. She was given Solu-Medrol in the emergency room and continued on Solu-Medrol Changed to Prednisone today Continue nebulizer treatments. Wean O2 as tolerated (4) Coronary artery disease: Code(s): I25.10 - Atherosclerotic heart disease of [place] coronary artery without angina pectoris Status: Acute Assessment and Plan: Patient has a history of CAD [place] and stenting more than 12 years ago EKG shows nonspecific ST-T changes. Serial Troponin were negative Echo as above Chest pain felt related to PNA Continue Plavix and statin, Holding beta-danie due to hypotension (5) Dyslipidemia: Code(s): E78.5 - Hyperlipidemia, unspecified Status: Acute Assessment and Plan: LFTs okay. Continue statin (6) Tobacco abuse: Code(s): Z72.0 - Tobacco use Status: Acute Assessment and Plan: Educate patient about the benefits of smoking cessation. (7) LV dysfunction: Code(s): I51.9 - Heart disease, unspecified Status: Acute Assessment and Plan: EF 40%. Patient does not have a hx of CHF. Plan for Coreg, valsartan, spironolactone and Empagliflozin as BP tolerates Plan DVT prophylaxis -Lovenox Code Status - DNR DNI Subjective Date/time seen: 07/25/23 15:37 Interval history: 73yo female with HTN, depression and CAD here for cough and SOB. No problems overnight. COugh better. Voiding well. Feels cold at times but no fevers, sweats or chills. No SOB. No CP but has a 'heaviness with deep breathing. Exam Narrative: AF 98.1 135/73 70 19 93% 3L Gen - NARD Neck - Rt IJ TLC in place Chest - decreased BS with egophony right lung base CV - RRR S1/S2. Tele showing no significant dysrhythmias Abd - Soft, ND, +BS. Ext - No pedal edema Psych - Nml mood and affect Skin - Warm and dry Objective Data Vital Signs Vital Signs: Vital Signs - 24 hr 07/24/23 16:00 07/24/23 16:00 07/24/23 16:00 Temperature 98.2 F Pulse Rate 73 88 Respiratory Rate 22 H Blood Pressure 88/59 L Pulse Oximetry 90 90 Oxygen Delivery
[2023-07-25] MEDS: DOXYCYCLINE HYCLATE 100 MG TABLET PO (20:08)
[2023-07-26] MEDS: HYDROcodone/acetaminophen (*CRX) 5-325 MG TABLET 1 TAB PO ×2 (00:40→05:13)
[2023-07-26] MEDS: BENZONATATE 100 MG CAPSULE 200 MG PO (05:13)
[2023-07-26 05:47] VITALS: BP 141/64; PULSE 75; RESP 22; TEMP 37.6; O2SAT 90
[2023-07-26 05:56] LABS: Hematocrit 34.7 % (37.0-47.0); Hemoglobin 11.4 g/dL (12.0-15.0); Mean Corpuscular HGB Conc 32.9 g/dl (32-36); Mean Corpuscular Hemoglobin 30.5 pg (26-34); Mean Corpuscular Volume 92.8 fl (80-100); Mean Platelet Volume 9.1 fl (7.4-10.4); Platelet Count Result 303 k/mm3 (150-375); Red Blood Count 3.74 M/mm3 (4.2-5.4); Red Cell Distribution Width 13.2 % (11.5-14.5); White Blood Count 13.7 K/mm3 (4.5-10.0)
[2023-07-26 06:06] LABS: Alanine Aminotransferase 13 U/L (6-35); Albumin Level 3.7 g/dL (3.5-5.1); Alkaline Phosphatase 83 U/L (38-126); Anion Gap 6 mmol/L (4-12); Aspartate Amino Transferase 25 U/L (14-36); Bilirubin,Total 0.9 mg/dL (0.2-1.3); Blood Urea Nitrogen 18 mg/dL (7-17); Calcium 9.4 mg/dL (8.4-10.2); Carbon Dioxide 26 mmol/L (22-30); Chloride 100 mmol/L (98-107); Estimated CRCL calculation 65 ml/min; Estimated Glomerular Filt Rate > 60; Glucose 94 mg/dL (65-110); Potassium 3.4 mmol/L (3.4-5.0); Sodium 132 mmol/L (137-145)
[2023-07-26 08:00] VITALS: O2SAT 93
[2023-07-26 08:20] VITALS: O2SAT 93
[2023-07-26] MEDS: POTASSIUM CHLORIDE 20 MEQ PACKET (FOR LIQUID) 40 MEQ PO (09:57)
[2023-07-26] MEDS: PANTOPRAZOLE 40 MG TABLET PO (10:00)
[2023-07-26] MEDS: guaiFENesin 12 HR 600 MG TABCR 1200 MG PO ×2 (10:00→21:01)
[2023-07-26] MEDS: DOXYCYCLINE HYCLATE 100 MG TABLET PO ×2 (10:01→21:04)
[2023-07-26] MEDS: ENOXAPARIN 40 MG/0.4 ML SYRINGE SUB-Q (10:02)
[2023-07-26] MEDS: ATORVASTATIN 40 MG TABLET PO (10:02)
[2023-07-26] MEDS: CLOPIDOGREL BISULFATE 75 MG TABLET PO (10:02)
[2023-07-26] MEDS: cefTRIAXone 2 GM/NS 100 ML 2 GM/100 ML BAG IVPB (10:22)
[2023-07-26] MEDS: predniSONE 20 MG TABLET 40 MG PO (10:22)
[2023-07-26] MEDS: CALCIUM CARBONATE (TUMS) 500 MG (200 MG ELEMENTAL) PO (12:00)
[2023-07-26 14:00] VITALS: BP 94/52; PULSE 92; RESP 18; TEMP 35.8; O2SAT 76
--- NOTE | 2023-07-26 14:30 | PM.IMPN ---
Progress Note: A&P Assessment and Plan (1) Septic shock: Code(s): A41.9 - Sepsis, unspecified organism; R65.21 - Severe sepsis with septic shock Status: Acute Assessment and Plan: Patient presents with cough/SOB and found to have low BP during evaluation in the ED. Septic shock due to PNA CTA chest showing patchy consolidations with several areas of cavitations. Consider septic emboli. Emphysema and ILD but no PE. BP dropped to 48/28 and central line placed and started on levophed. Also given IV fluids. Started on abx after appropriate cultures obtained. Able to wean off pressors. Off IV fluids . BP remaining stable but soft at times. Follow (2) Pneumonia: Code(s): J18.9 - Pneumonia, unspecified organism Status: Acute Assessment and Plan: CT chest showing patchy, probably peripheral and basilar consolidation with several focal areas of cavitation compatible with pneumonia or possibly septic emboli. Influenza, RSV and COVID PCR were negative. Nasal MRSA screen was negative. Vancomycin, Rocephin and azithromycin started. Blood cultures no growth to date. Sputum culture negative Urine antigen studies ordered. WBC higher today possibly related to steroids Echo mild LV enlargement with global systolic dysfunction, EF of 40%, Grade1 diastolic dysfunction and mild MR. No evidence of valvular vegetation. Vancomycin stopped. She is improving and BCx negative so cardioembolic source seems less likely Continue IV antibiotics. (3) COPD (chronic obstructive pulmonary disease): Code(s): J44.9 - Chronic obstructive pulmonary disease, unspecified Status: Acute Assessment and Plan: Patient is a current smoker. COPD listed in her past medical history. CT chest shows mild to moderate emphysema and possibly underlying chronic interstitial lung disease. She was given Solu-Medrol in the emergency room and continued on Solu-Medrol Changed to Prednisone. Able to wean O2. Continue nebulizer treatments. Wean O2 as tolerated. Home O2 evaluation tomorrow (4) Coronary artery disease: Code(s): I25.10 - Atherosclerotic heart disease of [place] coronary artery without angina pectoris Status: Acute Assessment and Plan: Patient has a history of CAD [place] and stenting more than 12 years ago EKG shows nonspecific ST-T changes. Serial Troponin were negative Echo as above Chest pain felt related to PNA Continue Plavix and statin, Holding beta-danie due to hypotension (5) Dyslipidemia: Code(s): E78.5 - Hyperlipidemia, unspecified Status: Acute Assessment and Plan: LFTs okay. Continue statin (6) Tobacco abuse: Code(s): Z72.0 - Tobacco use Status: Acute Assessment and Plan: Educate patient about the benefits of smoking cessation. (7) LV dysfunction: Code(s): I51.9 - Heart disease, unspecified Status: Acute Assessment and Plan: EF 40%. Patient does not have a hx of CHF. Plan for Coreg, valsartan, spironolactone and Empagliflozin as BP tolerates Plan TSH undetectable (<0.015) but her FT4 is normal at 1.9 and TT3 normal at 1.1. Probably euthyroid sick syndrome. Plan to repeat levels once she is well Hypokalemia - Potassium low-normal this morning and replacement ordered. Mag 2 DVT prophylaxis -Lovenox Code Status - DNR DNI Subjective Date/time seen: 07/26/23 14:30 Interval history: 73yo female with HTN, depression and CAD here for cough and SOB. Cough persistent. had left sided palpable chest wall pain earlier. Called back to complaining of a floating object in her vision that has resolved. No lights or headache or vision changes. Exam Narrative: AF 98.1 135/73 70 19 93% 3L Gen - NARD Chest - decreased BS right lung base o/w scattered rhonchi CV - RRR S1/S2 Abd - Soft, ND, +BS. Ext - No pedal edema Psych - Nml mood and affect Skin - Warm and dry Objective Data V
[2023-07-26 20:25] VITALS: BP 135/54; PULSE 76; RESP 16; TEMP 36; O2SAT 93
[2023-07-26 21:00] VITALS: PULSE 76; RESP 16; O2SAT 93
[2023-07-27] VITALS (7 sets, daily range): BP systolic 117–131; BP diastolic 49–61; PULSE 54–116; RESP 16–20; TEMP 35.9–36.2; O2SAT 90–98
[2023-07-27 07:05] LABS: Hematocrit 38.9 % (37.0-47.0); Hemoglobin 12.7 g/dL (12.0-15.0); Mean Corpuscular HGB Conc 32.6 g/dl (32-36); Platelet Count Result 340 k/mm3 (150-375); Red Blood Count 4.23 M/mm3 (4.2-5.4); Red Cell Distribution Width 13.2 % (11.5-14.5); White Blood Count 17.3 K/mm3 (4.5-10.0)
[2023-07-27 07:26] LABS: Alanine Aminotransferase 21 U/L (6-35); Alkaline Phosphatase 96 U/L (38-126); Anion Gap 7 mmol/L (4-12); Aspartate Amino Transferase 34 U/L (14-36); Bilirubin,Total 0.9 mg/dL (0.2-1.3); Blood Urea Nitrogen 20 mg/dL (7-17); Calcium 9.8 mg/dL (8.4-10.2); Carbon Dioxide 30 mmol/L (22-30); Chloride 96 mmol/L (98-107); Estimated CRCL calculation 65 ml/min; Estimated Glomerular Filt Rate > 60; Glucose 92 mg/dL (65-110); Magnesium 1.8 mg/dL (1.6-2.3); Potassium 3.7 mmol/L (3.4-5.0); Sodium 133 mmol/L (137-145)
[2023-07-27] MEDS: guaiFENesin 12 HR 600 MG TABCR 1200 MG PO (09:00)
[2023-07-27] MEDS: CLOPIDOGREL BISULFATE 75 MG TABLET PO (09:00)
[2023-07-27] MEDS: ATORVASTATIN 40 MG TABLET PO (09:00)
[2023-07-27] MEDS: PANTOPRAZOLE 40 MG TABLET PO (09:00)
[2023-07-27] MEDS: predniSONE 20 MG TABLET 40 MG PO (09:01)
[2023-07-27] MEDS: ENOXAPARIN 40 MG/0.4 ML SYRINGE SUB-Q (09:05)
[2023-07-27] MEDS: DOXYCYCLINE HYCLATE 100 MG TABLET PO (09:05)
--- NOTE | 2023-07-27 16:09 | PCRCNOTE ---
Home o2 eval completed. No home O2 needed at this time. RN notified.
--- NOTE | 2023-07-27 16:10 | HOMEO2EVAL ---
Evaluation was performed at [facility] Home Oxygen Evaluation RC: Home Oxygen (O2) Evaluation Start: 07/27/23 15:26 Freq: ONCE Status: Active Protocol: RPE Activity Type Activity Date Activity User E-sign Co-sign Detail Recorded Client Recorded Date Recorded By Document 07/27/23 15:50 ARLETH [email or web address] 07/27/23 16:09 ARLETH Document 07/27/23 15:55 ARLETH [email or web address] 07/27/23 16:09 ARLETH Document 07/27/23 16:00 ARLETH [email or web address] 07/27/23 16:09 ARLETH 07/27/23 07/27/23 07/27/23 15:50 15:55 16:00 Home O2 Evaluation [Oxygen] -Test Phase Resting Exercise Resting -Oxygen Delivery Room Air Room Air Room Air [Pulse Oximetry] -Pulse Oximetry (90-100 %) 92 90 93 [Pulse Rate] -Pulse Rate (60-100 beats/min) 86 116 H 90 [Evaluation] -Activity Tolerance Excellent [Exercise] -Ambulation Distance (feet) 400 -Ambulation Distance (meters) 121.91 [Comments] -Home Oxygen Evaluation Comments No home O2 needed at this time. [Charges] -Evaluation Charges O2 Evaluation by Pulmonary
--- NOTE | 2023-07-27 18:19 | PM.DS ---
DS: Admitting Diagnosis Discharge Date 07/27/23 Admitting Diagnosis Cough and SOB. DS: Discharge Diagnosis Discharge Diagnosis (1) Septic shock: Code(s): A41.9 - Sepsis, unspecified organism; R65.21 - Severe sepsis with septic shock Status: Acute (2) Pneumonia: Code(s): J18.9 - Pneumonia, unspecified organism Status: Acute (3) COPD (chronic obstructive pulmonary disease): Code(s): J44.9 - Chronic obstructive pulmonary disease, unspecified Status: Acute (4) Coronary artery disease: Code(s): I25.10 - Atherosclerotic heart disease of [place] coronary artery without angina pectoris Status: Acute (5) Dyslipidemia: Code(s): E78.5 - Hyperlipidemia, unspecified Status: Acute (6) Tobacco abuse: Code(s): Z72.0 - Tobacco use Status: Acute (7) LV dysfunction: Code(s): I51.9 - Heart disease, unspecified Status: Acute DS: Summary Hospital Course Reason for hospitalization: 73yo female with HTN, depression and CAD here for cough and SOB. Please see H&P for details Hospital Course: Patient presents with cough/SOB and found to have low BP during evaluation in the ED. Septic shock due to PNA. CTA chest showing patchy consolidations with several areas of cavitations. Consider septic emboli. Emphysema and ILD but no PE. BP dropped to 48/28 and central line placed and started on levophed. Also given IV fluids. She was started on abx after appropriate cultures obtained. She was admitted to the ICU. We were able to wean off pressors and IV fluids . BP remained stable but soft at times. Influenza, RSV and COVID PCR were negative.? Nasal MRSA screen was negative. Sputum culture negative. Urine antigen studies ordered and are pending. WBC higher today possibly related to steroids. Echo with mild LV enlargement with global systolic dysfunction, EF of 40%, Grade1 diastolic dysfunction and mild MR.? No evidence of valvular vegetation. She was improving and BCx negative so cardioembolic source seemed less likely. Patient is a current smoker. She was educated about the benefits of smoking cessation. COPD listed in her past medical history and CT chest shows mild to moderate emphysema and possibly underlying chronic interstitial lung disease. She was given Solu-Medrol in the emergency room and continued on Solu-Medrol. Changed to Prednisone. Able to wean O2. Home O2 evaluation showing she does not need oxygen. Patient has a history of CAD [place] and stenting more than 12 years ago. EKG shows nonspecific ST-T changes. Serial Troponin were negative. We continued Plavix and statin but held, Holding beta-danie due to hypotension. For the LV dysfunction (EF 40%), we were unable to start guideline directed therapy. Patient does not have a hx of CHF. Will have patient follow-up with her melter helper after discharge. TSH was undetectable (<0.015) but her FT4 is normal at 1.9 and TT3 normal at 1.1. Probably euthyroid sick syndrome. Plan to repeat levels once she is well. On the day of discharge, patient slipped in the room htting the door and sliding to the floor. An aide was in the room assisting her but did not see the event fully. She denies head injury, LOC, lightheadedness. She had urine incontinence and slipped on the wet floor. She kelsey the middle of her back and right forearm but no other area was injured. Full exam did not reveal and concerns. She was insistent on discharge. She overall did well and was able to be discharged home on 07/27/23. Status at Discharge Cognitive/behavioral status at discharge: stable Time Spent with Patient Time attestation: Total time spent providing and/or coordinating discharge services:38 minutes. Time spent: Greater than 30 minutes Exam Narrative: AF 97.2 117/49 90 18 93% ra Gen - NARD HEENT - NC/AT. no evidence of injury Chest - distant but clear breath sounds CV - RRR S1/S2 Abd - Soft, ND, +BS. Ext - No pedal edema. Moni
[2023-07-30 17:14] LABS: Pneumococcal Antigen Urine NOT DETECTED
[2023-07-31 22:04] LABS: Legionella pneumophila Ag Ur NOT DETECTED
--- NOTE | 2023-08-03 08:18 | PC.NURSE ---
Urine legionella and pneumococcal are both negative. Dr. Linda marshall.
[2023-08-03 16:54] LABS: Mycoplasma IgM Antibody Titer 190 U/mL
--- NOTE | 2023-08-05 10:01 | PC.NURSE ---
Urine Mycoplasma is WNL at 190. Dr. Mckeon aware.
== END 2023-07-27 19:27 | disposition home or self-care (01) | DRG 871 ==
LOC: ANHED 09:15 → ANHICU 10:18 → ANH3MEDSUR 07-25 13:25
PROVIDERS: Emergency Medicine; Internal Medicine; Admitting Provider Internal Medicine; Emergency Provider Emergency Medicine; PCP Internal Medicine; Visit Provider Internal Medicine
DX: A41.9 Sepsis, unspecified organism (principal); J18.9 Pneumonia, unspecified organism; R65.21 Severe sepsis with septic shock; I25.10 Atherosclerotic heart disease of native coronary artery without angina pectoris; J43.9 Emphysema, unspecified; E07.81 Sick-euthyroid syndrome; E78.5 Hyperlipidemia, unspecified; I10 Essential (primary) hypertension; F32.A Depression, unspecified; E87.6 Hypokalemia; K21.9 Gastro-esophageal reflux disease without esophagitis; E87.8 Other disorders of electrolyte and fluid balance, not elsewhere classified; Z20.822 Contact with and (suspected) exposure to COVID-19; F17.210 Nicotine dependence, cigarettes, uncomplicated; I25.2 Old myocardial infarction; Z95.5 Presence of coronary angioplasty implant and graft
CPT/HCPCS: 36415; 36556; 71046; 71275; 80048; 80053; 80202; 81001; 83605; 83735; 83880; 84100; 84145; 84439; 84443; 84480; 84484; 85025; 85027; 85610; 85730; 86140; 86738; 87040; 87070; 87205; 87449; 87637; 87641; 87899; 93005; 93306; 94618; 96361; 96365; 96367; 96375; 99283; 99291; A9270; C1751; C9113; J0456; J0696; J1650; J2919; J3370; J3480; J7030; J7120; J7512; P9047; Q9967

== ENCOUNTER 2023-09-24 02:59 | Emergency (ER) | payer MEDICARE, SELFPAY ==
--- NOTE | ~2023-09-24 | CT_ITS ---
Noncontrast CT scan of the cervical spine Technique: Multiple contiguous axial [address] images of the cervical spine were obtained and rec onstructed in 2D sagittal and coronal planes on the acquisition scanner. Dose reduction technique was used on this scan by utilizing automated exposure control, adjustment of the mA and/or kV according to patient size. The dose-length product (DLP) was 138.50 mGy-cm. Clinical History: Pain Findings: No fracture. There is 3 mm anterolisthesis of C4 over C5. There is mild degenerative disc n arrowing at C5-C6. There are extensive facet joint degenerative changes of the cervical spine. There is left neural foraminal narrowing at C3-C4. There is right neural foraminal narrowing at C4-C5. Prob able mild right neural foraminal narrowing at C5-C6.. There are severe degenerative changes at the ar ticulation of the odontoid process with the anterior arch of C1. No prevertebral soft tissue swelling . There is mild emphysema seen at the lung apices. Impression: No fracture. 3 mm anterolisthesis of C4 over C5. Degenerative spondylosis, as above. Reviewed, dictated and finalized at [facility]. Impression: No fracture. 3 mm anterolisthesis of C4 over C5. Degenerative spondylosis, as above.
--- NOTE | ~2023-09-24 | XR_ITS ---
Right Hand Technique: PA, oblique, and lateral views were obtained. Clinical History: Pain Findings: No acute fracture or dislocation is seen. Old, healed fracture deformity of the distal radi us probably present. Osseous alignment is anatomic. Joint spaces are preserved. Soft tissues are unre markable. Impression: No acute abnormality. Reviewed, dictated and finalized at location . Impression: No acute abnormality.
--- NOTE | ~2023-09-24 | CT_ITS ---
CT head without contrast Indication: Head injury Technique: Serial scans were obtained through the brain without the administration of contrast. Dose reduction technique was used on this scan by utilizing automated exposure control and iterative recon struction technique. The dose-length product (DLP) was 605.33 mGy-cm. Findings: There is no evidence of intracranial hemorrhage, mass lesion, or acute infarct. The ventri cles and subarachnoid spaces are unremarkable. Low attenuation regions are seen within the periventr icular white matter bilaterally, likely representing changes from chronic microvascular ischemic dise ase. There is no evidence of edema, mass effect or midline shift. The visualized paranasal sinuses and mastoid air cells are clear. Focal soft tissue swelling present in the high left parietal scalp. Impression: No intracranial hemorrhage, mass, or acute infarct. Mild chronic white matter changes, as above. Focal soft tissue swelling in the high left parietal scalp. Reviewed, dictated and finalized at [facility]. Impression: No intracranial hemorrhage, mass, or acute infarct. Mild chronic white matter changes, as above. Focal soft tissue swelling in the high left parietal scalp.
[2023-09-24 03:02] VITALS: BP 145/80; PULSE 98; RESP 15; TEMP 36.7; O2SAT 100
[2023-09-24 03:59] VITALS: BP 152/78; PULSE 78; RESP 16; O2SAT 97
--- NOTE | 2023-09-24 04:07 | ED.FALL ---
HPI - Fall General Chief Complaint: Fall Stated Complaint: fall, head injury Time Seen by Provider: 09/24/23 04:02 History of Present Illness HPI Narrative: Patient is 73-year-old female who presents to the emergency department this evening after a ground level fall at home. Patient does take Plavix daily. She states that she was doing some paperwork on her bed when she accidentally my stuff falling asleep and rolled off the bed onto the concrete floor. Patient does have a hematoma to her left parietal region. She denies any additional injuries at this time and is currently denying any symptoms or concerns. Related Data Home Medications Medication Instructions Recorded Confirmed atorvastatin 40 mg tablet 40 mg PO DAILY 11/12/20 07/22/23 carvedilol 3.125 mg tablet 3.125 mg PO Q12H 11/12/20 07/22/23 clopidogrel 75 mg tablet 75 mg PO DAILY 11/12/20 07/22/23 gabapentin 600 mg tablet 300 mg PO Q8H 11/12/20 07/22/23 potassium chloride 20 mEq 20 meq PO DAILY 11/12/20 07/22/23 tablet,extended release venlafaxine 150 mg 150 mg PO DAILY 11/12/20 07/22/23 capsule,extended release 24 hr buspirone 5 mg tablet 5 mg PO Q12H 07/22/23 07/22/23 escitalopram oxalate 10 mg tablet 10 mg PO DAILY 07/22/23 07/22/23 Allergies Allergy/AdvReac Type Severity Reaction Status Date / Time No Known Drug Allergies Allergy Unknown Unknown Verified 07/22/23 06:59 Review of Systems Review of Systems: All systems are reviewed and are negative unless stated otherwise in the HPI. [facility] Past Medical History Medical History Depression Dyslipidemia Emphysema/COPD Essential hypertension GERD (gastroesophageal reflux disease) History of [place] (myocardial infarction) Stenting in 2011 Surgical History Surgical History History of partial colectomy History of total hysterectomy Family History Family History Mother Diabetes mellitus, Onset Age: 44 Other Family history of cardiovascular disease Family history of congestive heart failure Family history of obesity Social History Social History Social History: Smokes half pack per day for last 20 years, denies any alcohol or drug use Smoking packs per day: 0.5 Smoking cigarettes per day: 10.0 Years smoked: 20 Smoking pack-years: 10.00 Smoking status: Current every day smoker Alcohol intake: never Substance use: never Do You Feel Safe in your Home?: Yes Lack of Transportation: No Lack of Food: Never True Current Housing: I Have Housing Concerned About Future Housing: No Difficulty Paying Gas/Electric Bills: No Difficulty Paying for Meds: No Currently Unemployed: No Education: Decline to Answer Difficulty w/ Childcare or Family Care: No Spiritual care concerns: No Exam Narrative: General: Alert, awake, afebrile, in no acute distress. HEENT: PERRL, no rhinorrhea, no post nasal drip, oropharynx clear, small hematoma to left parietal region. Cardiovascular: Regular rate and rhythm, no murmurs, rubs or gallops, no peripheral edema. Respiratory: Clear to auscultation bilaterally, no tachypnea, no wheezing, no rhonchi, no rubs, no respiratory distress. Abdomen: Soft, nontender, nondistended, no rebound, no guarding, no peritoneal signs. Musculoskeletal: No joint swelling or deformity, normal muscle tone. Back: No midline tenderness to palpation over the cervical, thoracic and lumbar spine, no step-offs or deformities. Skin: No rashes or petechia, no signs of infection. Neurological: Alert and oriented to person, place, and time. Follows all commands. No focal deficits, speech is clear and fluent. Course Vital Signs Vital signs: Vital Signs Temperature 98.1 F 09/24/23 03:02 Pulse Rate 98 09/24/23 03:02 Respir
[2023-09-24 04:23] VITALS: BP 150/84; PULSE 79; RESP 18; O2SAT 99
== END 2023-09-24 04:30 | disposition home or self-care (01) ==
LOC: ANHED 04:13
PROVIDERS: Emergency Provider Emergency Medicine; PCP Internal Medicine
DX: S00.03XA Contusion of scalp, initial encounter (principal); J43.9 Emphysema, unspecified; I10 Essential (primary) hypertension; I25.2 Old myocardial infarction; E78.5 Hyperlipidemia, unspecified; K21.9 Gastro-esophageal reflux disease without esophagitis; F32.A Depression, unspecified; F17.210 Nicotine dependence, cigarettes, uncomplicated; Z95.5 Presence of coronary angioplasty implant and graft; Z90.49 Acquired absence of other specified parts of digestive tract; Z90.710 Acquired absence of both cervix and uterus; Z79.899 Other long term (current) drug therapy; Z79.02 Long term (current) use of antithrombotics/antiplatelets; M47.812 Spondylosis without myelopathy or radiculopathy, cervical region; W06.XXXA Fall from bed, initial encounter
CPT/HCPCS: 70450; 72125; 73130; 99284; L0140